=== PATIENT | female | born 2005 | race Caucasian/White ===

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

== ENCOUNTER 2023-02-18 10:25 | Inpatient (IN) | payer OTHER ==
[2023-02-18] MEDS: ELECTROLYTE-148 SOLN 1,000 ML IV SCH (10:40)
[2023-02-18] MEDS ORDERED: BETAMET ACET/BETAMET NA PH 30 MG/5 ML VIAL ONE ×2 (11:29→23:17)
[2023-02-18] MEDS ORDERED: AMPICILLIN - 2 GM in SODIUM CHLORIDE 100 ML IVPB STA (11:35)
[2023-02-18] MEDS ORDERED: AMPICILLIN SODIUM 2 GM VIAL ONE (11:38)
[2023-02-18] MEDS: BETAMET ACET/BETAMET NA PH 30 MG/5 ML VIAL IM SCH (11:40)
[2023-02-18] MEDS ORDERED: MAGNESIUM 4GM/H20 - 4 GM/100 ML IVPB IVPB ONE (11:43)
[2023-02-18] MEDS ORDERED: AMPICILLIN - 1 GM in SODIUM CHLORIDE 100 ML IVPB SCH (11:45)
[2023-02-18] MEDS ORDERED: MAGNESIUM 4GM/H20 - 4 GM/100 ML IVPB IVPB SCH (11:45)
[2023-02-18 11:58] LABS: URINE APPEARANCE CLEAR; URINE BILIRUBIN NEGATIVE (NEGATIVE); URINE COLOR YELLOW; URINE GLUCOSE (UA) NEGATIVE (NEGATIVE); URINE KETONE NEGATIVE (NEGATIVE); URINE LEUK ESTERASE NEGATIVE (NEGATIVE); URINE NITRITE NEGATIVE (NEGATIVE); URINE PROTEIN NEGATIVE (NEGATIVE); URINE UROBILINOGEN 0.2 mg/dL (0.2-1.0)
[2023-02-18 12:21] VITALS: BMI 32.9
[2023-02-18] MEDS: MAGNESIUM SULFATE 20GM/500ML - 20 GM/500 ML INFUS.BAG IVPB SCH ×2 (12:30→21:30)
[2023-02-18 13:07] LABS: BASO % 0.2 % (0-2.0); EOS % 0.6 % (0-4.5); HEMATOCRIT 41.3 % (32.4-45.2); HEMOGLOBIN 14.2 GM/dL (10.7-15.3); LYMPH % 12.3 % (8-40); MCH 30.2 pg (25.7-33.7); MCHC 34.3 g/dl (32.0-36.0); MEAN PLT VOLUME 9.4 fl (7.5-11.1); NEUT % 81.9 % (42.8-82.8); PLATELET COUNT 225 10^3/uL (134-434); RBC 4.69 M/mm3 (3.60-5.2); RDW 13.8 % (11.6-15.6); WHITE BLOOD COUNT 14.8 K/mm3 (4.0-10.0)
[2023-02-18 13:13] LABS: PROTHROMBIN TIME (PATIENT) 11.6 SEC (9.7-13.0)
[2023-02-18 13:16] LABS: ACTIVATED PTT 33.1 SECONDS (25.2-36.5)
[2023-02-18 13:26] LABS: POTASSIUM 4.1 mmol/L (3.5-5.1)
[2023-02-18 13:29] LABS: BLOOD UREA NITROGEN 5.7 mg/dL (7-18)
[2023-02-18 13:32] LABS: CREATININE 0.5 mg/dL (0.55-1.3)
[2023-02-18] MEDS ORDERED: AMPICILLIN SODIUM 1 GM VIAL ONE ×3 (15:36→23:17)
[2023-02-18] MEDS: AMPICILLIN - 1 GM in SODIUM CHLORIDE 100 ML IVPB SCH ×3 (15:45→23:45)
[2023-02-18] MEDS ORDERED: SODIUM CHLORIDE 100 ML IVPB ONE ×2 (19:38→23:17)
[2023-02-18] MEDS ORDERED: MAGNESIUM SULFATE 20GM/500ML - 20 GM/500 ML INFUS.BAG ONE (21:24)
[2023-02-18] MEDS ORDERED: BETAMET ACET/BETAMET NA PH 30 MG/5 ML VIAL IM ONE (23:45)
[2023-02-19] MEDS ORDERED: AMPICILLIN SODIUM 1 GM VIAL ONE ×4 (03:32→16:14)
[2023-02-19] MEDS ORDERED: SODIUM CHLORIDE 100 ML IVPB ONE (03:32)
[2023-02-19] MEDS: AMPICILLIN - 1 GM in SODIUM CHLORIDE 100 ML IVPB SCH ×4 (03:45→16:15)
[2023-02-19] MEDS ORDERED: MAGNESIUM SULFATE 20GM/500ML - 20 GM/500 ML INFUS.BAG ONE (07:36)
[2023-02-19] MEDS: MAGNESIUM SULFATE 20GM/500ML - 20 GM/500 ML INFUS.BAG IVPB SCH (07:46)
[2023-02-19 07:52] VITALS: RESP 18
[2023-02-19] MEDS ORDERED: NIFEdipine 10 MG CAPSULE (FP) ONE ×4 (09:04→22:00)
[2023-02-19] MEDS: NIFEdipine 10 MG CAPSULE (FP) PO SCH ×4 (09:50→22:00)
[2023-02-19] MEDS: BETAMET ACET/BETAMET NA PH 30 MG/5 ML VIAL IM SCH (10:05)
[2023-02-19] MEDS: ELECTROLYTE-148 SOLN 1,000 ML IV SCH ×2 (10:40→11:00)
[2023-02-19] MEDS: AMOXICILLIN 500 MG CAPSULE (FP) PO SCH (22:00)
[2023-02-20] MEDS: AMOXICILLIN 500 MG CAPSULE (FP) PO SCH (06:05)
[2023-02-20 10:04] VITALS: TEMP 98.4
[2023-02-20 12:10] VITALS: BP 122/65; PULSE 82
== END 2023-02-20 13:15 | disposition home or self-care (01) | DRG 563 ==
LOC: JDEL 10:25 → JLDR 11:25
PROVIDERS: ADMIT Student in an Organized Health Care Education/Training Program; ATTEND Student in an Organized Health Care Education/Training Program
DX: O60.03 Preterm labor without delivery, third trimester (principal); Z3A.33 33 weeks gestation of pregnancy
CPT/HCPCS: 36415; 80048; 81003; 83735; 85025; 85610; 85730; 86780; 86850; 86900; 86901; 87070; 87077; 87081; 87086; 87205; 87491; 87591; 96372

== ENCOUNTER 2023-02-20 15:25 | Inpatient (IN) | payer OTHER ==
[2023-02-20] MEDS ORDERED: OXYTOCIN 20 UNITS in 0.9% NS 20 UNIT/1,000 ML INFUS.BAG IV ONE ×2 (18:38→18:42)
[2023-02-20] MEDS ORDERED: LIDOCAINE HCL 1% PRESERVATIVE FREE - 30ML VIAL ONE (18:38)
[2023-02-20] MEDS ORDERED: ELECTROLYTE-148 SOLN 1,000 ML IV SCH ×2 (18:45→19:15)
[2023-02-20] MEDS ORDERED: AMPICILLIN - 2 GM in SODIUM CHLORIDE 100 ML IVPB ONE (19:10)
[2023-02-20 19:12] VITALS: BMI 32.9
[2023-02-20] MEDS ORDERED: AMPICILLIN SODIUM 2 GM VIAL ONE (19:15)
[2023-02-20] MEDS ORDERED: ACETAMINOPHEN 325 MG TABLET (FP) PO PRN (20:51)
[2023-02-20] MEDS ORDERED: IBUPROFEN 600 MG TABLET (FP) PO PRN (20:51)
[2023-02-20] MEDS ORDERED: BENZOCAINE 20% 57 GM BOTTLE TP PRN (20:51)
[2023-02-20] MEDS ORDERED: BISACODYL 10 MG SUPP.RECT RC PRN (20:51)
[2023-02-20] MEDS ORDERED: WITCH HAZEL 50% (TUCKS) 40 PAD/JAR PAD TP PRN (20:51)
[2023-02-20] MEDS ORDERED: METHYLERGONOVINE MALEATE 0.2 MG/1 ML AMP IM PRN (20:51)
[2023-02-20] MEDS ORDERED: BENZOCAINE 28 GM HEMORRHOIDAL OINTMENT TP PRN (20:51)
[2023-02-20] MEDS ORDERED: OXYTOCIN 20 UNITS in 0.9% NS 20 UNIT/1,000 ML INFUS.BAG IV SCH (21:00)
[2023-02-21 08:33] LABS: BASO % 0.3 % (0-2.0); EOS % 0.1 % (0-4.5); HEMATOCRIT 38.2 % (32.4-45.2); LYMPH % 17.3 % (8-40); MCHC 34.1 g/dl (32.0-36.0); MEAN CELL VOLUME 88.2 fl (80-96); MEAN PLT VOLUME 9.7 fl (7.5-11.1); MONO % 9.4 % (3.8-10.2); NEUT % 72.9 % (42.8-82.8); PLATELET COUNT 233 10^3/uL (134-434); RBC 4.34 M/mm3 (3.60-5.2); RDW 14.2 % (11.6-15.6); WHITE BLOOD COUNT 16.1 K/mm3 (4.0-10.0)
[2023-02-21] MEDS: PRENATAL VITAMINS W/ FOLIC ACID TABLET (FP) PO SCH (09:47)
[2023-02-21] MEDS ORDERED: SENNOSIDES/DOCUSATE COMBO (SENNA PLUS) TABLET (UD) PO PRN (22:00)
[2023-02-22] MEDS: PRENATAL VITAMINS W/ FOLIC ACID TABLET (FP) PO SCH (09:56)
[2023-02-22 11:02] VITALS: BP 119/67; PULSE 90; RESP 17; TEMP 97.6
[2023-02-23 13:55] LABS: POC NITRAZINE NEG
== END 2023-02-22 12:55 | disposition home or self-care (01) | DRG 560 ==
LOC: JDEL 15:25 → JLDR 16:35 → UNDOADMIN 16:35 → JLDR 18:35 → J3W 23:03
PROVIDERS: ADMIT Obstetrics & Gynecology; ATTEND Obstetrics & Gynecology
PROC: 10E0XZZ Delivery of Products of Conception, External Approach (ICD-10-PCS; principal; 2023-02-20)
DX: O80 Encounter for full-term uncomplicated delivery (principal); Z3A.34 34 weeks gestation of pregnancy; Z37.0 Single live birth
CPT/HCPCS: 36415; 59025; 83986-QW; 85025